=== PATIENT | male | born 1990 | race African-American/Black ===

== ENCOUNTER 2023-05-09 10:38 | Outpatient (CLI) | payer SELFPAY | END 2023-05-09 10:39 | disposition home or self-care (01) | LOC: AMB 05-13 10:00 | PROVIDERS: Visit Provider Family Medicine | DX: R07.89 Other chest pain (principal) | CPT/HCPCS: A0425; A0427 ==

== ENCOUNTER 2023-05-09 11:05 | Emergency (ER) | payer SELFPAY ==
[2023-05-09] VITALS (15 sets, daily range): BP systolic 119–140; BP diastolic 74–95; PULSE 55–69; RESP 14; TEMP 36.9; O2SAT 95–100
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
== END 2023-05-09 13:14 | disposition home or self-care (01) ==
PROVIDERS: Emergency Provider Emergency Medicine
DX: S20.212A Contusion of left front wall of thorax, initial encounter (principal); V49.9XXA Car occupant (driver) (passenger) injured in unspecified traffic accident, initial encounter
CPT/HCPCS: 71045; 71260; 94761; 99283; 99284; 99285; 99291; G0390; Q9967